=== PATIENT | female | born 1970 | race Caucasian/White ===

== ENCOUNTER 2017-09-20 11:22 | Emergency (ER) | payer OTHER ==
[~2017-09-20] VITALS: Ht 162.6 cm; Wt 72.3 kg
[2017-09-20 14:55] VITALS: BP 121/96
== END 2017-09-20 14:56 | disposition home or self-care (01) ==
LOC: EME 11:22
PROC: 0HBRXZZ Excision of Toe Nail, External Approach (ICD-10-PCS; principal; 2017-09-20)
DX: L60.0 Ingrowing nail (principal); Z88.2 Allergy status to sulfonamides; Z88.8 Allergy status to other drugs, medicaments and biological substances
CPT/HCPCS: 99281; 99283; S0020